=== PATIENT | female | born 1950 | race African-American/Black ===

== ENCOUNTER 2016-06-22 11:38 | Emergency (ER) | payer MEDICARE, OTHER ==
[2016-06-22] MEDS ORDERED: Adacel (T-DAP) 0.5 ML VIAL ONE (12:14)
--- NOTE | 2016-06-22 12:46 | ERRECORD ---
[facility] EMERGENCY RECORD HPI BITE (12:05 BGOE) CHIEF COMPLAINT: Patient presents for evaluation of dog bite. COMPLICATING FACTORS: Tetanus status not up to date, tetanus immunization ordered. HISTORIAN: History provided by patient, patient walking to her mailbox last night (over [address]) when she startled a medium sized dog who bit her on the right thight. Since she doesn't drive at night she cleaned area and came in today for evaluation. has seen dog in area before but does not know of a specific owner professional engineer. dog did not appear to be rapid per patient. c/o some localized pain but no other complaints. LOCATION: Symptoms are localized. QUALITY: Pain is dull in nature, described as aching. SEVERITY: Maximum severity of symptoms moderate, Currently symptoms are mild. TIME COURSE: 15, hours prior to arrival. ASSOCIATED WITH: Associated with localized swelling. EXACERBATED BY: Patient's condition exacerbated by nothing. RELIEVED BY: Patient's condition relieved by time. ROS (12:09 BGOE) NOTES: All systems reviewed, negative except as described above. PAST MEDICAL HISTORY MEDICAL HISTORY: Flu vaccine not up to date, Tetanus not up to date, Pneumococcal vaccine not up to date, Past medical history includes history of hypertension, which has been treated. (11:51 CJEF) FEMALE SURGICAL HISTORY: Surgical history of hysterectomy. (11:51 CJEF) PSYCHIATRIC HISTORY: No previous psychiatric history. (11:51 CJEF) SOCIAL HISTORY: Patient denies alcohol use, Patient denies drug use, Patient has no smoking history. (11:51 CJEF) NOTES: Nursing records reviewed, Agree with nursing records, Medication list reviewed. (12:11 BGOE) KNOWN ALLERGIES codeine sulfate penicillin G potassium sulfanilamide CURRENT MEDICATIONS hydrochlorothiazide: TABLET : Strength - 25 mg : ORAL Patient Dose: 25 mg Oral once a day. (11:49 CJEF) amLODIPine: TABLET : Strength - 5 mg : ORAL Patient Dose: 10 mg Oral once a day. (11:49 CJEF) aspirin: &a-1R&a+25V*p+0X*d9777Y*c202B*c15G*c2P*p-0X&a-25V&a+1R Name: Jackie Abel : 1950 F66 MedRec: [id number] AcctNum: [id number] Prepared: Sat Jun 22, 2016 13:58 by Interface Page 1 of 3 pMD [facility] EMERGENCY RECORD TABLET : Strength - 81 mg : ORAL Patient Dose: mg Oral. (11:49 CJEF) Bystolic: TABLET : Strength - 10 mg : ORAL Patient Dose: 10 mg Oral once a day. (11:49 CJEF) carvedilol: TABLET : Strength - 12.5 mg : ORAL Patient Dose: 12.5 mg Oral once a day. (11:50 CJEF) VITAL SIGNS (11:43 CJEF) VITAL SIGNS: BP: 155/66, Pulse: 70, Resp: 18, Temp: 97.5 (Oral), Pain: 0, O2 sat: 98 on Room Air, Time: 06/22/2016 11:43. PHYSICAL EXAM (12:09 BGOE) CONSTITUTIONAL: Patient afebrile, Pulse normal, Blood pressure, hypertensive, Respiratory rate normal, Patient appears non toxic, Patient appears, in mild pain distress, Patient alert and oriented to person, place and time. HEAD: Head exam included findings of head atraumatic, normocephalic. EYES: Eye exam normal. ENT: ENT exam normal. NECK: Neck exam normal. RESPIRATORY CHEST: Respiratory and chest exam normal. CARDIOVASCULAR: Cardiovascular exam included findings of heart rate regular rate and rhythm, Heart sounds normal. ABDOMEN FEMALE: Abdominal exam included findings of abdomen nontender, Bowel sounds normal. UPPER EXTREMITY: Upper extremity exam included findings of inspection normal, Range of motion normal. LOWER EXTREMITY: Lower extremity exam included findings of inspection abnormal, small puncture wound x 2 to anterior right mid thigh with surrounding contusion approx. 5 x 5 cm., Range of motion normal, Motor strength normal, Sensation intact. NEURO: Neuro exam findings include patient oriented to person, place and time, Speech normal, Gait normal. SKIN: Skin exam included findings of skin warm, dry, and normal in color, Superficial, Wound condition: clean. PSYCHIATRIC: Psychiatric exam normal. MEDICATION ADMINISTRATION SUMMARY Drug Name: Adacel(Tdap Adolesn/Adult)(PF), Dose Ordered: 0.5 mL, Route: Intramuscular, Status: Given, Time: 12:19 06/22/2016, Detailed record available in Medication Service section. DOCTOR NOTES (12:18 BGOE) TEXT: local authorities contacted to further evaluate dog and situation regarding bite. low risk of rabies. &a-1R&a+25V*p+0X*s8426P*c202B*c15G*c2P*p-0X&a-25V&a+1R Name: Jackie Abel : 1950 F66 MedRec: [id number] AcctNum: [id number] Prepared: Nael Jun 22, 2016 13:58 by Interface Page 2 of 3 pMD [facility] EMERGENCY RECORD PATIENT PLAN: The patient will be discharged, The patient will follow up with primary care physician, The patient is to continue present medications. PROBLEM LIST No recorded problems DIAGNOSIS (12:16 BGOE) FINAL: PRIMARY: dog bite, ADDITIONAL: Hypertension. PRESCRIPTION clindamycin HCl: CAPSULE : 300 mg : ORAL : Quantity: 300 Unit: mg Route: ORAL Schedule: 3 times a day Dispense: 21 Unit: tab(s) May substitute. Refills: No Refills . (12:17 BGOE) NOTES: No Refills. (12:17 BGOE) doxycycline hyclate oral: CAPSULE : 100 mg : ORAL : Quantity: 1 Unit: cap(s) Route: ORAL Schedule: 2 times a day (before meals) Dispense: 14 Unit: cap(s) May substitute. Refills: No Refills . (12:18 BGOE) NOTES: No Refills. (12:18 BGOE) DISPOSITION PATIENT: Disposition Type: Discharge, Disposition: *Discharge Home, Condition: Good. (12:16 BGOE) Patient left the department. (12:39 CJEF) [place]: BGOE=MD Kunal, Tim CJEF=MAXI Conteh, Kelly &a-1R&a+25V*p+0X*j2429A*c202B*c15G*c2P*p-0X&a-25V&a+1R Name: Jackie Abel : 1950 F66 MedRec: [id number] AcctNum: [id number] Prepared: Nael Jun 22, 2016 13:58 by Interface Page 3 of 3 pMD MTDD
--- NOTE | 2016-06-22 12:51 | PICIS ---
[facility] EMERGENCY RECORD TRIAGE (11:47 CJEF) TRIAGE NOTES: PT REPORTS THAT SHE GOT BIT BY A DOG LAST NIGHT AND CLEANED THE AREA WITH ALCOHOL. PT ALSO USED TRIPLE ANTIBIOTIC CREAM. PT REPORTS THAT SHE DID NOT COME IN LAST NIGHT DUE TO SHE DOES NOT DRIVE AT NIGHT. TETANUS IS NOT UP TO DATE. PT BIT BY A A STRAY DOG THAT IS MEDIUM IN SIZE. BIT IS TO THE RIGHT UPPER THIGH. (11:47 CJEF) PATIENT: NAME: Jackie Abel, AGE: 66, GENDER: female, : Sat 1950, TIME OF GREET: Sat Jun 22, 2016 11:39, PREFERRED LANGUAGE: [place]an, ETHNICITY: Not or , ECODE BILLING MAP: [facility], SSN: [id number], Zip Code: [address], KG WEIGHT: 84.37, PHONE: , , , PERSON ID: [id number], PCP: Jordyn BUGRER MARY HELEN. (11:47 CJEF) COMPLAINT: DOG BITE/ 06/21/16. (11:47 CJEF) ADMISSION: URGENCY: 3 Urgent, ADMISSION SOURCE: Home, TRANSPORT: Walk-in, BED: TRIAGE. (11:47 CJEF) ASSESSMENT: Assessment: DOG BITE. (11:51 CJEF) IMMUNIZATIONS: Flu vaccine not up to date, Tetanus not up to date, Pneumococcal vaccine not up to date. (11:51 CJEF) SIRS SCORING: Heart Rate 55-109 (0), Temp range 96.8-101.1 (0), respiratory rate 12-24 (0), Mental Status altered: no (0), Infection or Suspected Infection: No. (11:51 CJEF) TRIAGE SCREENING: Patient denies suicidal ideation, Patient denies presence of domestic violence. (11:51 CJEF) LMP: LMP: Hysterectomy. (11:51 CJEF) PROVIDERS: TRIAGE NURSE: Kelly Conteh RN. (11:47 CJEF) VITAL SIGNS: BP 155/66, Pulse 70, Resp 18, Temp 97.5, (Oral), Pain 0, O2 Sat 98, on Room Air, Time 06/22/2016 11:43. (11:43 CJEF) KNOWN ALLERGIES codeine sulfate penicillin G potassium sulfanilamide CURRENT MEDICATIONS hydrochlorothiazide: TABLET : Strength - 25 mg : ORAL Patient Dose: 25 mg Oral once a day. (11:49 CJEF) amLODIPine: TABLET : Strength - 5 mg : ORAL Patient Dose: 10 mg Oral once a day. (11:49 CJEF) aspirin: TABLET : Strength - 81 mg : ORAL Patient Dose: mg Oral. (11:49 CJEF) Bystolic: TABLET : Strength - 10 mg : ORAL Patient Dose: 10 mg Oral once a day. (11:49 CJEF) carvedilol: &a-1R&a+25V*p+0X*w5240M*c202B*c15G*c2P*p-0X&a-25V&a+1R Name: Jackie Abel : 1950 F66 MedRec: [id number] AcctNum: [id number] Prepared: Sat Jun 22, 2016 14:05 by Interface Page 1 of 6 pMD [facility] EMERGENCY RECORD TABLET : Strength - 12.5 mg : ORAL Patient Dose: 12.5 mg Oral once a day. (11:50 CJEF) VITAL SIGNS (11:43 CJEF) VITAL SIGNS: BP: 155/66, Pulse: 70, Resp: 18, Temp: 97.5 (Oral), Pain: 0, O2 sat: 98 on Room Air, Time: 06/22/2016 11:43. NURSING ASSESSMENT: SKIN (11:55 CJEF) CONSTITUTIONAL: Complex assessment performed, Patient arrives ambulatory, Gait steady, History obtained from patient, Patient appears, anxious, Patient cooperative, Patient alert, Oriented to person, place and time, Skin warm, Skin dry, Skin normal in color, Mucous membranes pink, Mucous membranes moist, Patient is well-groomed, PT REPORTS THAT SHE GOT BIT BY A DOG LAST NIGHT AND CLEANED THE AREA WITH ALCOHOL. PT ALSO USED TRIPLE ANTIBIOTIC CREAM. PT REPORTS THAT SHE DID NOT COME IN LAST NIGHT DUE TO SHE DOES NOT DRIVE AT NIGHT. TETANUS IS NOT UP TO DATE. PT BIT BY A A STRAY DOG THAT IS MEDIUM IN SIZE. BIT IS TO THE RIGHT UPPER THIGH. PAIN: aching pain, UPPER RIGHT THIGH. SKIN: Skin assessment findings include skin warm, Skin dry, Skin normal in color, Notes: X2 PUNCTURE WOUNDS TO THE UPPER RIGHT THIGH. SITE WITH SWELLING AND REDNESS. NOTES: Patient tolerated procedure well. SAFETY: Side rails up, Cart/Stretcher in lowest position, Family at bedside, Call light within reach, Hospital ID band on. NURSING PROCEDURE: COMMUNICATIONS (12:06 [facility]) COMMUNICATIONS: Notes: SPOKE WITH [facility] OFFICE IN REGARDS TO DOG BITE. ALL REQUIRED INFO GIVEN. SO STAFF REQUESTED THAT THEIR NUMBER BE GIVEN TO THE PT AND THAT THEY WILL MEET HER AT HER HOUSE AFTER SHE IS RELEASED FOR FOLLOW UP. NURSING PROCEDURE: DISCHARGE NOTE (12:37 [facility]) DISCHARGE: Patient discharged to home, ambulating without assistance, driving self, unaccompanied, Summary of Care printed/ provided, Patient requested and was provided an electronic copy of Discharge Instructions, Transition record given to patient, Simple or moderate discharge teaching performed, Prescriptions given and instructions on side effects given, Medication reconciliation form given, Above person(s) verbalized understanding of discharge instructions and follow-up care, Patient treated and evaluated by physician. BELONGINGS: Belongings remain with patient. NOTES: Patient tolerated procedure well. SAFETY: Side rails up, Cart/Stretcher in lowest position, Family at bedside, Call light within reach, Hospital ID band on. NURSING PROCEDURE: WOUND CARE (12:29 [facility]) PATIENT IDENTIFIER: Patient actively involved in identification process, Patient's identity verified by patient stating name, &a-1R&a+25V*p+0X*a6095C*c202B*c15G*c2P*p-0X&a-25V&a+1R Name: Jackie Abel : 1950 F66 MedRec: [id number] AcctNum: [id number] Prepared: Sat Jun 22, 2016 14:05 by Interface Page 2 of 6 pMD [facility] EMERGENCY RECORD Patient's identity verified by patient stating date. TIMEOUT: Prior to procedure, correct patient verified by, Correct procedure verified, Correct site verified, Correct equipment utilized. WOUND CARE: Wound care indicated to promote healing, Wound cleansed with Betadine, Notes: WOUND CLEANED WITH BETADINE. FOLLOW-UP: After procedure, simple dressing applied, Notes: WOUND CLEANED AND COVERED WITH NON ADHESIVE BANDAGE AND SECURED WITH KERLEX AND COBAN. NOTES: Patient tolerated procedure well. SAFETY: Side rails up, Cart/Stretcher in lowest position, Family at bedside, Call light within reach, Hospital ID band on. ORDER DETAILS Order Name: chart element #1, Status: Active, Time: 12:29 06/22/2016, User: System, - Ordered for: MD Syed Brian, - Entered by: MAXI Conteh Cassie - Nael Jun 22, 2016 12:29, - Quantity: 1, Order Name: chart element #4, Status: Active, Time: 12:29 06/22/2016, User: System, - Ordered for: MD Syed Brian, - Entered by: MAXI Conteh Cassie - Sat Jun 22, 2016 12:29, - Quantity: 1. MEDICATION ADMINISTRATION SUMMARY Drug Name: Adacel(Tdap Adolesn/Adult)(PF), Dose Ordered: 0.5 mL, Route: Intramuscular, Status: Given, Time: 12:19 06/22/2016, Detailed record available in Medication Service section. MEDICATION SERVICE Adacel(Tdap Adolesn/Adult)(PF): Order: Adacel(Tdap Adolesn/Adult)(PF) (diphth,pertuss(acell),tet vac/preservative free) - Dose: 0.5 mL : Intramuscular Schedule: Now Ordered by: Tim Syed MD Entered by: Tim Syed MD Sat Jun 22, 2016 12:12 Documented as given by: Kelly Conteh RN Sat Jun 22, 2016 12:19 Patient, Medication, Dose, Route and Time verified prior to administration. IM immunization, Medication administered to left deltoid, Patient appears Awake and alert- acceptable, Correct patient, time, route, dose and medication confirmed prior to administration, Patient advised of actions and side-effects prior to administration, Allergies confirmed and medications reviewed prior to administration, Patient tolerated procedure well, Patient in position of comfort, Side rails up, Cart in lowest position, Family at bedside. : Follow Up : Response assessment performed, No signs or &a-1R&a+25V*p+0X*z7310I*c202B*c15G*c2P*p-0X&a-25V&a+1R Name: Jackie Abel : 1950 F66 MedRec: [id number] AcctNum: [id number] Prepared: Sat Jun 22, 2016 14:05 by Interface Page 3 of 6 pMD [facility] EMERGENCY RECORD symptoms of allergic reaction noted, Advised not to ambulate without assistance, Patient in position of comfort, Side rails up, Cart in lowest position, Family at bedside. (12:34 CJEF) HPI BITE (12:05 BGOE) CHIEF COMPLAINT: Patient presents for evaluation of dog bite. COMPLICATING FACTORS: Tetanus status not up to date, tetanus immunization ordered. HISTORIAN: History provided by patient, patient walking to her mailbox last night (over [address]) when she startled a medium sized dog who bit her on the right thight. Since she doesn't drive at night she cleaned area and came in today for evaluation. has seen dog in area before but does not know of a specific owner professional engineer. dog did not appear to be rapid per patient. c/o some localized pain but no other complaints. LOCATION: Symptoms are localized. QUALITY: Pain is dull in nature, described as aching. SEVERITY: Maximum severity of symptoms moderate, Currently symptoms are mild. TIME COURSE: 15, hours prior to arrival. ASSOCIATED WITH: Associated with localized swelling. EXACERBATED BY: Patient's condition exacerbated by nothing. RELIEVED BY: Patient's condition relieved by time. ROS (12:09 BGOE) NOTES: All systems reviewed, negative except as described above. PAST MEDICAL HISTORY MEDICAL HISTORY: Flu vaccine not up to date, Tetanus not up to date, Pneumococcal vaccine not up to date, Past medical history includes history of hypertension, which has been treated. (11:51 CJEF) FEMALE SURGICAL HISTORY: Surgical history of hysterectomy. (11:51 CJEF) PSYCHIATRIC HISTORY: No previous psychiatric history. (11:51 CJEF) SOCIAL HISTORY: Patient denies alcohol use, Patient denies drug use, Patient has no smoking history. (11:51 CJEF) NOTES: Nursing records reviewed, Agree with nursing records, Medication list reviewed. (12:11 BGOE) PHYSICAL EXAM (12:09 BGOE) CONSTITUTIONAL: Patient afebrile, Pulse normal, Blood pressure, hypertensive, Respiratory rate normal, Patient appears non toxic, Patient appears, in mild pain distress, Patient alert and oriented to person, place and time. HEAD: Head exam included findings of head atraumatic, normocephalic. EYES: Eye exam normal. &a-1R&a+25V*p+0X*k7217X*c202B*c15G*c2P*p-0X&a-25V&a+1R Name: Jackie Abel : 1950 F66 MedRec: [id number] AcctNum: [id number] Prepared: Sat Jun 22, 2016 14:05 by Interface Page 4 of 6 pMD [facility] EMERGENCY RECORD ENT: ENT exam normal. NECK: Neck exam normal. RESPIRATORY CHEST: Respiratory and chest exam normal. CARDIOVASCULAR: Cardiovascular exam included findings of heart rate regular rate and rhythm, Heart sounds normal. ABDOMEN FEMALE: Abdominal exam included findings of abdomen nontender, Bowel sounds normal. UPPER EXTREMITY: Upper extremity exam included findings of inspection normal, Range of motion normal. LOWER EXTREMITY: Lower extremity exam included findings of inspection abnormal, small puncture wound x 2 to anterior right mid thigh with surrounding contusion approx. 5 x 5 cm., Range of motion normal, Motor strength normal, Sensation intact. NEURO: Neuro exam findings include patient oriented to person, place and time, Speech normal, Gait normal. SKIN: Skin exam included findings of skin warm, dry, and normal in color, Superficial, Wound condition: clean. PSYCHIATRIC: Psychiatric exam normal. EVENTS TRANSFER: Triage to Emergency Triage. (Sat Jun 22, 2016 11:47 CJEF) Emergency Triage to Main ED -05. (11:52 CJEF) Removed from Emergency Main ED -05. (12:39 CJEF) O2SAT INTERPRETATION (12:11 BGOE) O2SAT: Single pulse oximetry, Oxygen saturation interpretation: Normal. DOCTOR NOTES (12:18 BGOE) TEXT: local authorities contacted to further evaluate dog and situation regarding bite. low risk of rabies. PATIENT PLAN: The patient will be discharged, The patient will follow up with primary care physician, The patient is to continue present medications. PROBLEM LIST No recorded problems DIAGNOSIS (12:16 BGOE) FINAL: PRIMARY: dog bite, ADDITIONAL: Hypertension. DISPOSITION PATIENT: Disposition Type: Discharge, Disposition: *Discharge Home, Condition: Good. (12:16 BGOE) Patient left the department. (12:39 CJEF) INSTRUCTION (12:16 BGOE) DISCHARGE: DOG BITE. &a-1R&a+25V*p+0X*c8534Q*c202B*c15G*c2P*p-0X&a-25V&a+1R Name: Jackie Abel : 1950 F66 MedRec: [id number] AcctNum: [id number] Prepared: Sat Jun 22, 2016 14:05 by Interface Page 5 of 6 pMD [facility] EMERGENCY RECORD FOLLOWUP: [facility] BURGER., [facility] , Follow up with Primary Care Physician in 1-2 days. SPECIAL: f/u with local authorities Tylenol or Advil for Pain Follow-up with your PCP. PRESCRIPTION clindamycin HCl: CAPSULE : 300 mg : ORAL : Quantity: 300 Unit: mg Route: ORAL Schedule: 3 times a day Dispense: 21 Unit: tab(s) May substitute. Refills: No Refills . (12:17 BGOE) NOTES: No Refills. (12:17 BGOE) doxycycline hyclate oral: CAPSULE : 100 mg : ORAL : Quantity: 1 Unit: cap(s) Route: ORAL Schedule: 2 times a day (before meals) Dispense: 14 Unit: cap(s) May substitute. Refills: No Refills . (12:18 BGOE) NOTES: No Refills. (12:18 BGOE) IMAGING (12:39 CJEF) *DISCHARGE INSTRUCTIONS RECEIPT: Image captured from scanner. *SUPPLY CHARGE SHEET: Image captured from scanner. TDAP: Image captured from scanner. ADMIN (13:56 BGOE) DIGITAL SIGNATURE: MD Syed Brian. [place]: BGOE=MD Syed Brian CJEF=MAXI Conteh, Kelly &a-1R&a+25V*p+0X*x8718S*c202B*c15G*c2P*p-0X&a-25V&a+1R Name: Jackie Abel : 1950 F66 MedRec: [id number] AcctNum: [id number] Prepared: Nael Jun 22, 2016 14:05 by Interface Page 6 of 6 pMD CASSANDRAD
== END 2016-06-22 12:39 | disposition home or self-care (01) ==
LOC: MADERS 11:38
DX: S71.151A Open bite, right thigh, initial encounter (principal); I10 Essential (primary) hypertension; Z90.710 Acquired absence of both cervix and uterus; W54.0XXA Bitten by dog, initial encounter
CPT/HCPCS: 90471; 90715

== ENCOUNTER 2017-06-20 17:17 | Emergency (ER) | payer MEDICARE ==
--- NOTE | 2017-06-20 18:13 | RAD ---
CHEST ONE VIEW 06/20/17 HISTORY: Cough. COMPARISON: Chest one view 2005. FINDINGS: Lungs are clear. No pneumothorax or effusion. The cardiac silhouette and mediastinal contours are sim ilar. Dense calcifications of the transverse aorta. IMPRESSION: No acute intrathoracic abnormality. POS: H
[2017-06-20 18:55] LABS: Anion Gap 26 mmol/L (10-20); BUN (Urea Nitrogen) 43 mg/dL (9.8-20.1); Calc. Creatinine Clearance 0 mL/min (70-130); Calcium 9.1 mg/dL (7.8-10.44); Carbon Dioxide 27 mmol/L (23-31); Chloride 89 mmol/L (98-107); Estimated GFR-MDRD 18; Glucose 102 mg/dL (80-115); Potassium 3.1 mmol/L (3.5-5.1); Sodium 139 mmol/L (136-145)
[2017-06-20 18:57] LABS: CKMB 6.2 ng/mL (0-6.6); Troponin I 0.116 ng/mL (< 0.028)
[2017-06-20] MEDS ORDERED: Oseltamivir 75 MG CAP ONE (18:57)
[2017-06-20] MEDS ORDERED: Ondansetron HCl/PF 4 MG/2 ML Vial ONE (18:57)
[2017-06-20] MEDS ORDERED: Aspirin 325 MG TAB ONE (19:33)
== END 2017-06-20 22:06 | disposition short-term general hospital (02) ==
LOC: MADERS 17:17
DX: I21.4 Non-ST elevation (NSTEMI) myocardial infarction (principal); E87.6 Hypokalemia; J11.1 Influenza due to unidentified influenza virus with other respiratory manifestations; N17.9 Acute kidney failure, unspecified; I10 Essential (primary) hypertension; Z79.82 Long term (current) use of aspirin; Z79.899 Other long term (current) drug therapy
CPT/HCPCS: 36415; 71045; 80048; 82553; 83880; 84484; 93005; 96374; J2405